=== PATIENT | male | born 1995 | race Caucasian/White ===

== ENCOUNTER 2017-05-08 15:17 | Emergency (ER) | payer OTHER ==
[2017-05-08 15:21] VITALS: BP 103/50; PULSE 60; TEMP 98; BMI 25.0
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
[2017-05-08] MEDS ORDERED: IBUPROFEN 600 MG TABLET (FP) PO ONE ×2 (16:26→16:49)
== END 2017-05-08 18:04 | disposition home or self-care (01) ==
LOC: JERFT 15:17
PROC: 2W3SX1Z Immobilization of Right Foot using Splint (ICD-10-PCS; principal; 2017-05-08)
DX: M79.671 Pain in right foot (principal); W50.0XXA Accidental hit or strike by another person, initial encounter; Y93.67 Activity, basketball; Y92.310 Basketball court as the place of occurrence of the external cause
CPT/HCPCS: 73630-TC-RT; 99281-25

== ENCOUNTER 2019-06-04 10:46 | Emergency (ER) | payer OTHER ==
[2019-06-04 10:59] VITALS: BP 102/65; PULSE 65; TEMP 99; BMI 25.8
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
[2019-06-04] MEDS ORDERED: IBUPROFEN 600 MG TABLET (FP) PO ONE (11:48)
[2019-06-04] MEDS ORDERED: BACITRACIN 15 GM TUBE TOPICAL OINTMENT ONE (11:48)
== END 2019-06-04 12:13 | disposition home or self-care (01) ==
LOC: JERFT 10:46
PROC: 2W3RXYZ Immobilization of Left Lower Leg using Other Device (ICD-10-PCS; principal; 2019-06-04)
DX: S83.422A Sprain of lateral collateral ligament of left knee, initial encounter (principal); S80.212A Abrasion, left knee, initial encounter; W18.39XA Other fall on same level, initial encounter; Y93.02 Activity, running; Y92.480 Sidewalk as the place of occurrence of the external cause; Y99.8 Other external cause status; W39.XXXA Discharge of firework, initial encounter
CPT/HCPCS: 29530; 73562-TC-LT-FY; 99281-25

== ENCOUNTER 2020-02-06 16:41 | Emergency (ER) | payer OTHER ==
[2020-02-06 16:53] VITALS: BP 116/65; PULSE 69; TEMP 97.9; BMI 26.6
[2020-02-06] MEDS ORDERED: KETOROLAC TROMETHAMINE 60 MG/2 ML VIAL IM ONE (17:20)
[2020-02-06] MEDS ORDERED: KETOROLAC TROMETHAMINE 60 MG/2 ML VIAL ONE (17:20)
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
== END 2020-02-06 17:29 | disposition home or self-care (01) ==
LOC: JERFT 16:41
PROC: 3E0233Z Introduction of Anti-inflammatory into Muscle, Percutaneous Approach (ICD-10-PCS; principal; 2020-02-06)
DX: S39.012A Strain of muscle, fascia and tendon of lower back, initial encounter (principal); S76.912A Strain of unspecified muscles, fascia and tendons at thigh level, left thigh, initial encounter; V43.52XA Car driver injured in collision with other type car in traffic accident, initial encounter; Y93.89 Activity, other specified; Y92.410 Unspecified street and highway as the place of occurrence of the external cause; R56.9 Unspecified convulsions; F17.210 Nicotine dependence, cigarettes, uncomplicated
CPT/HCPCS: 99284-25

== ENCOUNTER 2024-05-31 19:17 | Emergency (ER) | payer OTHER ==
[2024-05-31 19:37] VITALS: BP 101/46; PULSE 61; RESP 20; TEMP 98.2; BMI 29.0
[2024-05-31] MEDS ORDERED: DIPHTH,PERTUSS(ACELL),TET 0.5 ML DISP.SYRIN IM ONE (21:15)
[2024-05-31] MEDS ORDERED: AMOX TR/POT CLAV 875MG/125MG TABLETS (FP) ONE (21:15)
[2024-05-31] MEDS: DIPHTH,PERTUSS(ACELL),TET 0.5 ML DISP.SYRIN IM ONE (21:19)
[2024-05-31] MEDS: AMOX TR/POT CLAV 875MG/125MG TABLETS (FP) PO ONE (21:19)
== END 2024-05-31 21:20 | disposition home or self-care (01) ==
LOC: JER 19:17 → JERFT 19:17
PROC: 3E0234Z Introduction of Serum, Toxoid and Vaccine into Muscle, Percutaneous Approach (ICD-10-PCS; principal; 2024-05-31)
DX: S01.511A Laceration without foreign body of lip, initial encounter (principal); W54.0XXA Bitten by dog, initial encounter; Z23 Encounter for immunization
CPT/HCPCS: 90471; 90715; 96372; 99284-25